=== PATIENT | female | born 1960 | race Caucasian/White ===

== ENCOUNTER 2021-04-21 19:28 | Emergency (ER) | payer OTHER, SELFPAY ==
[2021-04-21 19:50] VITALS: BP 140/82; PULSE 107; RESP 20; TEMP 36.8; O2SAT 97
--- NOTE | 2021-04-21 20:30 | ED.WOUNDLAC ---
HPI - Wound/Laceration General Chief Complaint: Wound/Laceration Stated Complaint: right knee swollen streaking up leg Time Seen by Provider: 04/21/21 19:32 Source: patient Mode of arrival: ambulatory Limitations: no limitations History of Present Illness HPI narrative: mildly painful right knee with minimal swelling and now increasing redness to distal medial right thigh. Extremity Location: Right: knee Related Data Allergies Allergy/AdvReac Type Severity Reaction Status Date / Time No Known Allergies Allergy Unverified 10/22/15 11:51 Review of Systems Review of Systems: All systems reviewed & are unremarkable except as noted in HPI and below Musculoskeletal: Musculoskeletal: Reports arthralgias and Reports joint swelling PMFSH Past Medical History Medical History Cellulitis of right knee Exam Const: General: no acute distress and alert Nutritional Appearance: well nourished Orientation/consciousness: patient oriented x3 HENMT: Head: normal to inspection Ears: external ears normal and TM's normal bilaterally Mouth: Yes lip normal and Yes moist mucous membranes Teeth and gingiva: dentition normal Eyes: Conjunctivae: conjunctivae normal Pupils: Equal, round and reactive pupils present EOM: EOMs intact bilaterally Neck: Neck: normal visual inspection and no lymphadenopathy Chest: Chest palpation & inspection: normal inspection of the chest and abnormal inspection of the chest Resp: Effort & Inspection: normal respiratory effort Auscultation: clear to auscultation bilaterally Cardio: Rate: regular rate Rhythm: regular rhythm GI: GI Palp: Yes Soft to palpation (no acute tenderness) Percussion: Yes normal to percussion Auscultation: normal bowel sounds Back/Spine/Pelvis: Back: no CVA tenderness Skin: General skin exam: normal color Neuro: General: patient oriented x3, moves all extremities, no meningeal signs, no focal motor deficits and CN's II-XI intact bilaterally Extrem: Other: minimally swollen right knee with full ROM and minimal pain. reddish streak proximal to the lower thigh. no pus or marked thigh swelling Psych: Appearance: grossly normal and well kempt Mental Status: mental status grossly normal Affect: normal affect Attitude: cooperative Thought content: Yes Normal thought content present Course Course Emergency Course: Pt was stable in the ED. She deferred crutches and IV fluids. Vital Signs Vital signs: Vital Signs Temperature 36.8 C 04/21/21 19:50 Pulse Rate 107 H 04/21/21 19:50 Respiratory Rate 20 04/21/21 19:50 Blood Pressure 140/82 04/21/21 19:50 Pulse Oximetry 97 04/21/21 19:50 Temperature 36.6 C 04/21/21 20:45 Pulse Rate 78 04/21/21 20:45 Respiratory Rate 18 04/21/21 20:45 Blood Pressure 138/79 04/21/21 20:45 Pulse Oximetry 97 04/21/21 20:45 Discharge Plan Discharge Clinical Impression: Cellulitis of right knee Patient Disposition: Home, Self-Care Condition: Stable Instructions: Antibiotic Form, Cellulitis (ED) Additional Instructions: Home. May RTC prn. PMD on 04/22/2021 for referral to Ortho MD re imaging and manx. Rx below. Prescriptions: New sulfamethoxazole-trimethoprim [Bactrim DS] 800-160 mg tablet 1 tablet PO Q12H Qty: 20 RF: 0 ibuprofen 800 mg tablet 800 mg PO TID Qty: 20 RF: 0 omeprazole magnesium [Prilosec OTC] 20 mg tablet,delayed release (DR/EC) 20 mg PO BID Qty: 20 RF: 0 tramadol 50 mg tablet 50 mg PO Q8H PRN (Reason: pain) Qty: 6 RF: 0 Follow-up/Referrals: Meenu Garcia MD [Primary Care Provider] -
[2021-04-21] MEDS: KETOROLAC (*BKC) 60 MG/2 ML VIAL IM (20:38)
[2021-04-21] MEDS: cefTRIAXone 1 GM VIAL IM (20:39)
[2021-04-21] MEDS: LIDOCAINE HCL 1% LOCAL INJ 20 ML VIAL (20:40)
[2021-04-21 20:45] VITALS: BP 138/79; PULSE 78; RESP 18; TEMP 36.6; O2SAT 97
== END 2021-04-21 20:51 | disposition home or self-care (01) ==
PROVIDERS: Emergency Provider Emergency Medicine; PCP Internal Medicine
DX: L03.115 Cellulitis of right lower limb (principal)
CPT/HCPCS: 96372; 99283; 99284; J0696; J1885

== ENCOUNTER 2024-03-10 13:04 | Outpatient (CLI) | payer OTHER, SELFPAY ==
--- NOTE | ~2024-03-10 | MM_ITS ---
EXAMINATION: MM screening yevgeniy BI w debbie HISTORY: Screening TECHNIQUE: Craniocaudal and mediolateral oblique 3-D tomosynthesis images were obtained and synthetic 2-D images were generated. CAD analysis was submitted and interpreted. COMPARISON: No prior mammogram is available for comparison at this institution. BREAST PARENCHYMAL COMPOSITION: Not dense: There are scattered areas of fibroglandular density. FINDINGS: There is a focal mass in the upper outer quadrant of the left breast. The right breast is s table without evidence for malignancy. IMPRESSION: 1. Focal mass upper outer quadrant of the left breast. 2. Additional spot compression and mediolateral views with possible follow-up breast ultrasound recom mended. BI-RADS Category 0: Incomplete: Needs additional imaging evaluation. Reviewed, dictated and finalized at location B. IMPRESSION: 1. Focal mass upper outer quadrant of the left breast. 2. Additional spot compression and mediolateral views with possible follow-up b reast ultrasound recommended. BI-RADS Category 0: Incomplete: Needs additional imaging evaluation.
--- NOTE | ~2024-03-10 | DEXA_ITS ---
Bone Density Report Name: KELLIE FIELDS Age: 63 Sex: Female Ethnicity: White Date of : 1960 Indication: postmenopausal; screening for osteoporosis; parental hip fracture; height loss; prior fracture; Referring Provider: Meenu Garcia Study: Bone densitometry was performed. Exam Date: March 10, 2024 Accession number: [id number] Bone Density: Region BMD T-score Z-score Classification AP Spine(L1, L2, L3) 0.901 -1.1 0.4 Osteopenia Femoral Neck (Left) 0.683 -1.5 -0.1 Osteopenia Total Hip (Left) 0.868 -0.6 0.5 Normal Femoral Neck (Right) 0.720 -1.2 0.2 Osteopenia Total Hip (Right) 0.883 -0.5 0.6 Normal Femoral Neck Mean 0.701 -1.3 0.0 Osteopenia Total Hip Mean 0.876 -0.5 0.5 Normal World Health Organization criteria for BMD impression classify patients as: Normal (T-score at or above -1.0), Osteopenia (T-score between -1.0 and -2.5), or Osteoporosis (T-score at or below -2.5). 10-year Fracture Risk(1): Major Osteoporotic Fracture 26% Hip Fracture 1.3% Reported Risk Factors: [place] (), Neck BMD=0.683, BMI=33.5, previous fracture, parental fracture (1) FRAX(R) Version 3.08. Fracture probability calculated for an untreated patient. Fracture probability may be lower if the patient has received treatment. Clinical Information Provided by Patient: Has had a low trauma fracture Parent has had a hip fracture Has used the following medications: Vitamin D Patient maximum height was 69 Menopause Age: 52 No regular weight bearing exercise Does not regularly consume dairy products Drinks caffeinated beverages Onset of menses at age 15 Number of children 1 Impression: The patient has low bone mass, based on the Left Femoral Neck T-score. The patient has risk factors, including: parental hip fracture, previous fracture. Discussion: BONE DENSITY IS LOW AT ONE OR MORE SKELETAL SITES. This patient's lowest T-score is low at one or more skeletal sites. It meets the World Health Organization's (WHO) criteria for ?low bone mass? (T-score between -1.0 and -2.5). The patient's 10-year risk of fracture as calculated by FRAX is less than the threshold where pharmacological therapy is recommended by the National Osteoporosis Foundation (NOF). However, all treatment decisions require clinical judgment and consideration of individual patient factors, including patient preferences, comorbidities, previous drug use, risk factors not captured in the FRAX model (e.g., frailty, falls, vitamin D deficiency, increased bone turnover, interval significant decline in bone density) and possible under or overestimation of fracture risk by FRAX. The patient should follow a healthful lifestyle (good nutrition with adequate calcium and vitamin D, and appropriate weight-bearing exercise).
== END 2024-03-10 13:05 | disposition home or self-care (01) ==
PROVIDERS: PCP Internal Medicine; Visit Provider Internal Medicine
DX: Z12.31 Encounter for screening mammogram for malignant neoplasm of breast (principal); Z78.0 Asymptomatic menopausal state; R92.8 Other abnormal and inconclusive findings on diagnostic imaging of breast; M85.89 Other specified disorders of bone density and structure, multiple sites
CPT/HCPCS: 77063; 77067; 77080

== ENCOUNTER 2024-03-17 08:45 | Outpatient (CLI) | payer OTHER, SELFPAY ==
--- NOTE | ~2024-03-17 | MMUS_ITS ---
EXAMINATION: MM diagnostic yevgeniy LT w debbie, US breast LT limited HISTORY: Follow-up left breast mass TECHNIQUE: Additional 3-D tomosynthesis images of the left breast were performed and synthetic 2-D im ages were generated. CAD analysis was submitted and interpreted. High resolution Limited left breast ultrasound was performed. COMPARISON: 03/10/2024 BREAST PARENCHYMAL COMPOSITION: Not Dense: The breasts are almost entirely fatty. FINDINGS: MAMMOGRAPHIC FINDINGS: There is a persistent asymmetry in the upper outer quadrant of the left breast, middle third. There a re no suspicious calcifications or architectural distortion. ULTRASOUND: Limited left breast ultrasound: At 3:00, 4 cm from the nipple, there are 2 adjacent hypoechoic oval m asses which may be contiguous with one another. These both contain low-level internal echoes the larg est measuring 5 mm. The smaller measures 3 mm with mixed posterior attenuation. IMPRESSION: 1. Probable benign findings of the left breast. 2. Recommend 6 month follow-up Limited left breast ultrasound and diagnostic left mammogram. BI-RADS category 3, probably benign findings. Reviewed, dictated and finalized at location B. IMPRESSION: 1. Probable benign findings of the left breast. 2. Recommend 6 month follow-up Limited left breast ultrasound and diagnostic le ft mammogram. BI-RADS category 3, probably benign findings.
--- NOTE | ~2024-03-17 | US_ITS ---
US retroperitoneal comp 03/17/2024 09:08 Procedure: Realtime transabdominal ultrasound of the kidneys and bladder. Indication: Hematuria Comparison: CT dated 08/15/2015 Findings: Renal echotexture is normal bilaterally without contour deforming mass or renal calculus. T here is mild bilateral renal caliectasis. The right kidney measures 12.6 cm and left kidney measures 11.3 cm. Bladder within normal limits. Impression: 1: Mild bilateral renal caliectasis. Reviewed, dictated and finalized at location B. Impression: 1: Mild bilateral renal caliectasis.
== END 2024-03-17 08:46 | disposition home or self-care (01) ==
LOC: CHSIMG 08:47
PROVIDERS: PCP Internal Medicine; Visit Provider Nurse Practitioner Family
DX: R31.9 Hematuria, unspecified (principal); R92.8 Other abnormal and inconclusive findings on diagnostic imaging of breast; N20.0 Calculus of kidney
CPT/HCPCS: 76642; 76770; 77061; 77065; G0279

== ENCOUNTER 2025-04-10 20:51 | Emergency (ER) | payer OTHER, SELFPAY ==
[2025-04-10 20:51] VITALS: BP 184/97; PULSE 93; RESP 18; TEMP 36.2; O2SAT 96
--- OUTSIDE RECORDS SUMMARY | 2025-04-10 20:52 | XMS_ITS | Clinical Summary ---
Author Organization [facility] Address [facility] [place] [address] Care Team Providers Care Mains And Service Supervisor Name Role Phone Unavailable Primary Care Provider Unavailabl e Social History Tobacco Use Types Packs/Day Years Used Date Smoking Tobacco: Never Assessed Comments Unknown Sex and Gender Information Value Date Recorded Sex Assigned at Not on file Legal Sex Female 10:24 PM CDT Gender Identity Not on file Sexual Orientation Not on file Plan of Treatment Health Maintenance Due Date Last Done Comments Cervical Cancer Screening Pa p Smear (Age 30 to 64) Every 3 Years 1962 Colorectal Cancer Screening Colonoscopy (10 Years) 1962 Annual Physical 1965 Hepatitis C 1980 DTaP, Tdap and Td Vaccines ( 1 - Tdap) 1981 Cervical Cancer Screening Pa p with HPV Testing (Age 30 to 64) Every 5 Years 1992 Cervical Cancer Screening with HPV 1992 Mammogram Screening 2002 Pneumococcal Vaccine: 50+ Ye ars (1 of 1 - PCV) 2012 Zoster Vaccines (1 of 2) 2012 COVID-19 Vaccine (2023-2 5 season) 2024 RSV Immunization or 60+ Years (1 - 1-dose 75+ series) 2037 Meningococcal B Vaccine Aged Out No l onger eligible based on patient's age to complete this topic Meningococcal Vaccine Aged Out No arlyn kyleigh eligible based on patient's age to complete this topic RSV Immunizations Under 20 Months Aged Out No longer eligible based on patient's age to complete this topic
--- OUTSIDE RECORDS SUMMARY | 2025-04-10 20:52 | XMS_ITS | Patient Health Record ---
Author Organization [facility] Address [address] [place], [place] [id number] Care Team Providers Care Landscape Crew Member Name Role Phone ALLISON BLUM Unavailable [phone] Reason For Referral No Information Medications Medication SIG (Take, Route, Frequency, Duration) Notes Start Date End Date Status Medrol Dosepak ORAL Medrol DosepakOr iginal MedicationMedrol Dosepak *Reorder from [employer] for eRx and Interaction Alerts* 09/23/2013 Active Nabumetone 500 MG Oral Tablet nabumetone 500 MG Oral TabletOriginal Medicationnabumetone 500 MG Oral Tablet *Reorder from [employer] for eRx and Interaction Alerts* 12/19/2013 Active Plan Of Treatment No Information Insurance Providers Payer Name Payer Address Payer Phone Subscriber Number Group Number Insured Name Patient Relationship to Insured Coverage Start Date Coverage End Date [employer] [facility] [address] [place], [place] [id number] KELLIE FIELDS Self - patient is the insured
--- NOTE | 2025-04-10 20:54 | ED_ITS ---
HPI - Nausea/Vomiting/Diarrhea General Chief complaint: Dizziness Stated complaint: dizzy Time Seen by Provider: 04/10/25 20:52 Source: patient Mode of arrival: ambulatory Limitations: no limitations History of Present Illness HPI Narrative: Patient is 65-year-old female with positional change vertigo this evening. She turns her head to the sides and gets dizzy. Associated nausea. Left ear fullness. MD elicited complaint: nausea Pertinent past history: other ( Hypertension) Onset (ago): day(s) ( 1) Description of vomiting: none Description of diarrhea: other ( none) Associated nausea: Yes Associated abdominal pain: No Location of pain: other ( left ear) Radiation: does not radiate Pain consistency: intermittent Severity: mild Pain scale (0-10): 1 Quality: dull Exacerbating factors: none Relieving factors: none Context: other ( patient having dizziness and vertigo with moving the head or when her eyes move this evening with associated nausea) Associated symptoms: nausea/vomiting Treatment prior to arrival: none Related Data Home Medications ?Medication ?Instructions ?Recorded ?Confirmed ?Last Taken ?Type alendronate 70 mg tablet 70 mg PO DAILY 04/10/2509/03 Unknown History atorvastatin 20 mg tablet 20 mg PO QPM 04/10/25 Unknown History ergocalciferol (vitamin D2) 1,250 1,250 mcg PO DAILY 0 04/10/25 04/10/25 Unknown History mcg (50,000 unit) capsule escitalopram oxalate 20 mg tablet 20 mg PO DAILY 04/1004/10/25 Unknown History losartan 25 mg tablet 25 mg PO DAILY 04/10/2509/03 Unknown History zolpidem 10 mg tablet 10 mg PO HS 04/10/25 5 Unknown History Allergies Allergy/AdvReac Type Severity Reaction Status Date / Time No Known Allergies Allergy Unverified 10/22/15 11:51 Review of Systems 2 Review of Systems: All systems reviewed & are unremarkable except as noted in HPI and below Constitutional: Constitutional: Reports no additional constitutional complaints Eyes: Eyes: Reports no additional eye complaints ENT: Reports system reviewed and no additional complaints, except as documented Cardiovascular: Cardiovascular: Reports no additional cardiovascular complaints Respiratory: Respiratory: Reports no additional respiratory complaints Gastrointestinal: Gastrointestinal: Reports no additional gastrointestinal complaints Genitourinary: Genitourinary: Reports no additional female genitourinary complaints Musculoskeletal: Musculoskeletal: Reports no additional musculoskeletal complaints Integumentary/Breasts: Skin/Breast: Reports system reviewed and no additional complaints, except as docu Neurologic: Reports system reviewed and no additional complaints, except as documented Psychiatric: Psychiatric: Reports no additional psychiatric complaints Endocrine: Endocrine: Reports no additional endocrine complaints Hematologic/Lymphatic: Hematologic/Lymphatic: Reports no additional hematologic/lymphatic complaints Allergic/Immunologic: Allergic/Immunologic: Reports no additional allergic/immunologic complaints PMFSH Past Medical History Medical History Cellulitis of right knee Exam 2 Const: General: healthy appearing Nutritional Appearance: well nourished Orientation/consciousness: patient oriented x3 HENMT: Head: normal to inspection Ears: external ears normal F kelvin/Nose/Sinus: Normal external nose present Eyes: Conjunctivae: conjunctivae normal Cornea: corneas normal Pupils: E qual, round and reactive pupils present Neck: Neck: normal visual inspection Chest: Chest palpation & inspection: normal inspection of the chest Resp: Effort & Inspection: normal respiratory effort and not labored A uscultation: clear to auscultation bilaterally and no crackles Cardio: Rate: regular rate Rhythm: regular rhythm Heart sounds: no murmurs GI: Inspection: non-distended GI Palp: Yes Soft to palpation and No Tenderness to palpation present (GI) Auscultation: normal bowel sounds : General: Yes bladder normal to palpation Back/Spine/Pelvis: Back: no CVA tenderness Skin: General skin exam: normal color Rashes: no rashes Wounds: no wounds Neuro: General: patient oriented x3, moves all extremities and no meningeal signs Extrem: General: normal to inspection and no clubbing, cyanosis or edema Psych: Mental Status: mental status grossly normal Affect: normal affect Attitude: cooperative Course Vital Signs Vital signs: Vital Signs Temperature 36.2 C L 04/10/25 20:51 Pulse Rate 93 04/10/25 20:51 Respiratory Rate 18 04/10/25 20:51 Blood Pressure 184/97 H 04/10/25 20:51 Pulse Oximetry 96 04/10/25 20:51 Oxygen Delivery Room Air 04/10/25 20:51 Temperature 36.6 C 04/10/25 23:22 Pulse Rate 86 04/10/25 23:22 Respiratory Rate 20 04/10/25 23:22 Blood Pressure 150/95 H 04/10/25 23:22 Pulse Oximetry 97 04/10/25 23:22 Oxygen Delivery Room Air 04/10/25 23:22 MDM - Nausea/Vomiting/Diarrhea MDM Narrative Medical decision making narrative: patient is a 65-year-old female with vertigo on positional changes of her head this evening. Meclizine. Labs. Urine. EKG. Lab Data Attestation: I reviewed the patient's lab results. 04/10/25 22:08 04/10/25 22:08 Labs: Lab Results 04/10/25 04/10/25 Range/Units 22:08 22:26 WBC 7.1 (4.8-10.8) K/mm3 RBC 4.37 (4.20-5.40) M/mm3 Hgb 12.5 (12.0-15.0) g/dL Hct 40.1 (35.0-49.0) % MCV 91.8 (78.0-102.0) fL MCH 28.6 (27.0-31.0) pg MCHC 31.2 L (32-36) g/dL RDW 12.8 (11.6-14.4) % Plt Count 190 (150-420) K/mm3 MPV 9.7 (9.2-11.8) fl Immature Gran % (Auto) 0.4 H (0.0-0.0) % Neut % (Auto) 83.3 H (50.0-70.0) % Lymph % (Auto) 12.5 L (18.0-42.0) % [place] % (Auto) 2.5 (2.0-11.0) % Eos % (Auto) 0.7 L (1.0-6.0) % Baso % (Auto) 0.6 (0.0-1.0) % Lymph # (Auto) 0.89 L (1.10-4.50) K/mm3 [place] # (Auto) 0.18 (0.10-0.90) K/mm3 Eos # (Auto) 0.05 (0.02-0.50) K/mm3 Baso # (Auto) 0.04 (0.00-0.10) K/mm3 Abs Immat Gran (auto) 0.03 H (0.00-0.00) K/mm3 Absolute Neuts (auto) 5.92 (1.70-7.20) K/mm3 Absolute Nucleated RBC 0.00 (0.00-0.00) K/mm3 Nucleated RBC % 0.0 (0-0.0) % Sodium 142 (137-145) mmol/L Potassium 4.1 (3.4-5.0) mmol/L Chloride 107 (98-107) mmol/L Carbon Dioxide 29 (22-30) mmol/L Anion Gap 6 (4-12) mmol/L BUN 15 (7-17) mg/dL Creatinine 0.76 (0.7-1.0) mg/dL Estim Creat Clear Calc 84 ml/min Estimated GFR > 60 (59 - ) Glucose 127 H (65-110) mg/dL Calculated Osmolality 296 H (285-295) mOsm/kg Calcium 9.2 (8.4-10.2) mg/dL Total Bilirubin 0.5 (0.2-1.3) mg/dL AST 25 (14-36) U/L ALT 19 (6-35) U/L Alkaline Phosphatase 62 (38-126) U/L Total Protein 6.7 (6.3-8.2) g/dL Albumin 4.1 (3.5-5.1) g/dL Urine Color Light yellow (Yellow) Urine Appearance Clear (Clear) Urine pH 7.0 (5.0-8.0) Ur Specific [place] 1.010 (1.010-1.020) Urine Protein Negative (Negative) Urine Glucose (UA) Negative (Negative) Urine Ketones 1+ H (Negative) Ur Blood (Man) 1+ H (Negative) Urine Nitrate Negative (Negative) Urine Bilirubin Negative (Negative) Urine Urobilinogen 0.2 (0.2-1.0) mg/dL Leukocyte Esterase Rfl Negative (Negative) SANTANA/UL Urine RBC 0-2 (0-2) /hpf Urine WBC 0-3 (0-3) /hpf Ur Squamous Epith Cells None seen (Few) /hpf Urine Bacteria None seen (None) /hpf ECG Data EKG #1: Attestation: I personally reviewed and interpreted this ECG as follows: ECG completion date: 04/10/25 ECG completion time: 22:00 EKG Interpretation: normal rate, sinus rhythm, no ectopy, no ST changes, normal QRS, normal QT and left axis Discharge Plan Discharge Clinical Impression: BPV (benign positional vertigo) Qualifiers: Laterality: left Qualified Code(s): H81.12 - Benign paroxysmal vertigo, left ear Patient Disposition: Home Condition: Stable Instructions: Benign Paroxysmal Positional Vertigo (ED) Patient Language: Malay Prescriptions: New meclizine 25 mg tablet 25 mg PO TID PRN (Reason: dizziness) Qty: 20 0RF prednisone 20 mg tablet 40 mg PO DAILY 2 Days Qty: 4 0RF ondansetron 4 mg tablet,disintegrating 4 mg PO Q6H PRN (Reason: nausea and vomiting) Qty: 20 0RF No Action alendronate 70 mg tablet 70 mg PO DAILY atorvastatin 20 mg tablet 20 mg PO QPM losartan 25 mg tablet 25 mg PO DAILY ergocalciferol (vitamin D2) 1,250 mcg (50,000 unit) capsule 1,250 mcg PO DAILY zolpidem 10 mg tablet 10 mg PO HS escitalopram oxalate 20 mg tablet 20 mg PO DAILY omeprazole magnesium [Prilosec OTC] 20 mg tablet,delayed release (DR/EC) 20 mg PO BID Qty: 20 0RF tramadol 50 mg tablet 50 mg PO Q8H PRN (Reason: pain) Qty: 6 0RF Follow-up/Referrals: Meenu Garcia MD [Primary Care Provider, Internal Medicine] Time of Disposition: 23:09
[2025-04-10] MEDS: ONDANSETRON INJ 4 MG/2 ML VIAL IV PUSH (21:16)
--- NOTE | 2025-04-10 21:18 | ECG_ITS ---
Test Date: 2025-04-10 21:21:21 Measurements Intervals Mcdavid Rate: 75 P: 40 WV: 161 QRS: -24 QRSD: 92 T: 37 QT: 388 QTc: 435 Interpretive Statements SINUS RHYTHM BORDERLINE LEFT AXIS DEVIATION [QRS AXIS < -20] No previous ECG available for comparison Electronically Signed On 04-11-2025 09:29:44 CDT by Robert Le M.D.
[2025-04-10] MEDS: MECLIZINE HCL 25 MG TABLET PO (21:56)
[2025-04-10] MEDS: SODIUM CHLORIDE 0.9% IV 1,000 ML 999 ML IV CONT (21:57)
[2025-04-10 22:18] LABS: Hematocrit 40.1 % (35.0-49.0); Hemoglobin 12.5 g/dL (12.0-15.0); Immature Granulocyte Percent A 0.4 % (0.0-0.0); Lymphocytes Absolute Auto 0.89 K/mm3 (1.10-4.50); Mean Corpuscular HGB Conc 31.2 g/dL (32-36); Mean Corpuscular Hemoglobin 28.6 pg (27.0-31.0); Mean Corpuscular Volume 91.8 fL (78.0-102.0); Nucleated Red Blood Cells Absolute Auto 0.00 K/mm3 (0.00-0.00); Nucleated Red Blood Cells Perc 0.0 % (0-0.0); Platelet Count Result 190 K/mm3 (150-420); Red Blood Count 4.37 M/mm3 (4.20-5.40); White Blood Count 7.1 K/mm3 (4.8-10.8)
[2025-04-10 22:31] LABS: Alanine Aminotransferase 19 U/L (6-35); Albumin Level 4.1 g/dL (3.5-5.1); Alkaline Phosphatase 62 U/L (38-126); Anion Gap 6 mmol/L (4-12); Aspartate Amino Transferase 25 U/L (14-36); Bilirubin,Total 0.5 mg/dL (0.2-1.3); Blood Urea Nitrogen 15 mg/dL (7-17); Calcium 9.2 mg/dL (8.4-10.2); Carbon Dioxide 29 mmol/L (22-30); Chloride 107 mmol/L (98-107); Estimated CRCL calculation 84 ml/min; Estimated Glomerular Filt Rate > 60; Glucose 127 mg/dL (65-110); Osmolality Calculated 296 mOsm/kg (285-295); Potassium 4.1 mmol/L (3.4-5.0); Sodium 142 mmol/L (137-145); Total Protein 6.7 g/dL (6.3-8.2)
[2025-04-10 22:33] LABS: Add Urine Microscopic? YES; Appearance Urine Clear (Clear); Glucose Urine UA Negative (Negative); Leukocyte Esterase Ur Negative LEU/UL (Negative); Nitrate Urine Negative (Negative); Specific Grav Ur 1.010 (1.010-1.020)
[2025-04-10 22:43] VITALS: BP 156/90; PULSE 70; RESP 16; TEMP 37.3; O2SAT 97
[2025-04-10 23:22] VITALS: BP 150/95; PULSE 86; RESP 20; TEMP 36.6; O2SAT 97
== END 2025-04-10 23:22 | disposition home or self-care (01) ==
PROVIDERS: Emergency Provider Emergency Medicine; PCP Internal Medicine
DX: H81.12 Benign paroxysmal vertigo, left ear (principal); Z79.899 Other long term (current) drug therapy
CPT/HCPCS: 36415; 80053; 81001; 85025; 93005; 96361; 96374; 99284; A9270; J2405; J7030; J7512

== ENCOUNTER 2025-04-26 15:51 | Outpatient (RCR) | payer OTHER, SELFPAY ==
--- NOTE | 2025-04-26 16:57 | OPREHPOC ---
Outpatient Therapy Plan of Care This is a Multidisciplinary Plan of Care that may contain components documented by all disciplines (PT, OT, and ST.) PT Problem 1 PT Problem #1 Knowledge Deficit PT Goal 1 Goal / Goal Update independent and compliant with HEP Target Visit 2 PT Problem 2 PT Problem #2 Impaired Functional Mobility PT Goal 1 Goal / Goal Update no dizziness or vertigo symptoms in the last week Target Visit 4
--- NOTE | 2025-04-26 16:57 | PTOPEVAL1 ---
Assessment and note entered by JT File, PT Evaluation Information Assessment Status Evaluation ICD-10 Condition Codes (PT) Dizziness and Giddiness R42 Onset 04/10/25 Subjective Information patient reports a couple weeks ago she woke up really dizzy. she reports by the afternoon she was throwing up, and by the evening she went to the ER and was told she had vertigo. she reports she is better, but has been fighting dizziness ever since. she reports her symptoms will come on and go away quickly. she reports they are brought on by up and down head movements than say side to side. she reports she still feels off. she reports it does not bother her to lay down or more side to side. she reports it is more quick movements to look up or turn and look behind her. she reports she was placed on antibiotics for an inner ear infection, and also dizziness medication. when she gets dizzy, she feels off kilter. Reported Pain Level Pain Score 0: Self Report Assessment PT Clinical Summary mrs. naidu is a 65 yo woman who presents to skilled PT services for evaluation and treatment of dizziness/vertigo. her signs and symptoms do not line up with traditional BBPV, nor does she has positive abdoul hallpike testing today. she displays more signs and symptoms of a visual stabilization issue with head movements, especially multi directional and quick movements. she would benefit from continued skilled PT to improve her objective/functional deficits and return to prior level functional activity performance without deficits. Plan of Care Interventions Neuro Re-education,Patient/Caregiver Education, Therapeutic Activities,Therapeutic Exercise PT Services Indicated Yes Treatment Frequency and 2x weekly for 4 visits Duration These treatments will address the objective and functional deficits as defined above. The patient will be advanced safely and appropriately in order for the patient to progress towards his/her prior level of function. Additional exercises will be introduced and as well as a comprehensive home exercise program upon discharge, if needed, ?to ensure carryover of functional gains achieved in the clinic. This treatment plan has been reviewed and agreement upon by the patient.
--- NOTE | 2025-05-01 16:21 | PCPTNOTE ---
Cancelled session. Working late today.
== END 2025-07-25 23:59 | disposition home or self-care (01) ==
LOC: CHSPT 15:51
PROVIDERS: Visit Provider Nurse Practitioner Family
DX: R42 Dizziness and giddiness (principal)
CPT/HCPCS: 97112; 97161